=== PATIENT | male | born 1985 | race Two or more races ===

== ENCOUNTER 2017-10-03 00:44 | Emergency (ER) | payer OTHER ==
[2017-10-03] MEDS ORDERED: METHOCARBAMOL 750 MG TAB PO (02:00)
== END 2017-10-03 02:02 | disposition home or self-care (01) ==
LOC: M ED 00:44
DX: S39.002A Unspecified injury of muscle, fascia and tendon of lower back, initial encounter (principal); S46.911A Strain of unspecified muscle, fascia and tendon at shoulder and upper arm level, right arm, initial encounter; V49.49XA Driver injured in collision with other motor vehicles in traffic accident, initial encounter; Y92.410 Unspecified street and highway as the place of occurrence of the external cause; Y93.89 Activity, other specified; Y99.8 Other external cause status; F17.210 Nicotine dependence, cigarettes, uncomplicated
CPT/HCPCS: 72052

== ENCOUNTER 2017-11-07 09:19 | Outpatient (RCR) | payer OTHER | END 2017-11-28 | LOC: M PT 09:19 | DX: Z51.89 Encounter for other specified aftercare (principal); S33.9XXA Sprain of unspecified parts of lumbar spine and pelvis, initial encounter; X58.XXXA Exposure to other specified factors, initial encounter; Y92.89 Other specified places as the place of occurrence of the external cause; Y93.9 Activity, unspecified; Y99.9 Unspecified external cause status | CPT/HCPCS: 97010 ==

== ENCOUNTER 2017-11-30 08:37 | Outpatient (RCR) | payer OTHER | END 2017-12-29 | LOC: M PT 08:37 | DX: Z51.89 Encounter for other specified aftercare (principal); S33.9XXA Sprain of unspecified parts of lumbar spine and pelvis, initial encounter; Y92.89 Other specified places as the place of occurrence of the external cause; Y99.9 Unspecified external cause status; Y93.9 Activity, unspecified | CPT/HCPCS: 97010 ==

== ENCOUNTER → 2024-09-10 | Outpatient (CLI) | payer SELFPAY ==
[~2024-09-10] MED LIST: NAPR-885 PO; ROBA500T PO
== END ==
LOC: M OUTALCOH 08:46
PROVIDERS: ATTEND Psychiatry & Neurology Psychiatry
DX: Z03.89 Encounter for observation for other suspected diseases and conditions ruled out (principal)